=== PATIENT | male | born 1950 | race Caucasian/White ===

== ENCOUNTER 2019-05-27 09:06 | Day surgery (SDC) | payer OTHER ==
[~2019-05-27] VITALS: Ht 175.3 cm; Wt 91.3 kg
[~2019-05-27 09:06] MED LIST: ASCO500 PO; ASPI81CH PO; ATOR10 PO; Bactrim 400-801 EACH PO; CEPH500 PO; HYDACE5 PO; METF500 PO; QUIN10 PO; SILD50TA PO; SULI150 PO; THERA1 EACH PO
--- NOTE | 2019-05-27 09:25 | NUR ---
History, Chart, Medications and Allergies reviewed before start of procedure. Patient confirms NPO status and agrees with scheduled surgery. Patient States Post-Procedure ride home has been arranged with his .
--- NOTE | 2019-05-27 13:18 | NUR ---
ARRIVAL TO STEPDOWN. REPORT RECEIVED FROM Yonatan OLMSTEAD. VSS ON RA. PAIN LEVEL 2/10. TOLERATING PO JUICE AND CRACKERS. PROPHALACTIC PAIN PILL GIVEN. D/C INSTRUCTIONS GIVEN TO PT AND . VERBALIZE UNDERSTANDING.
--- NOTE | 2019-05-27 13:56 | NUR ---
DOES NOT FEEL LIKE HE HAS TO URINATE. INSTRUCTED TO DRINK FLUIDS AND CALL DOCTOR IF UNABLE TO VOID BY THIS EVENING.
== END 2019-05-27 23:01 | disposition home or self-care (01) ==
LOC: ORSCMMR 09:06 → ORD 10:30 → ORSCMMR 10:30
PROVIDERS: Surgery
PROC: 0YU60JZ Supplement Left Inguinal Region with Synthetic Substitute, Open Approach (ICD-10-PCS; principal; 2019-05-27 10:30)
DX: K40.90 Unilateral inguinal hernia, without obstruction or gangrene, not specified as recurrent (principal); I10 Essential (primary) hypertension; E78.00 Pure hypercholesterolemia, unspecified; Z87.891 Personal history of nicotine dependence; Z79.899 Other long term (current) drug therapy
CPT/HCPCS: 82947; A9270-GY; C1781; J0690; J1100; J1885; J2250; J2405; J2704; J3010; J7120

== ENCOUNTER 2021-02-03 08:19 | Day surgery (SDC) | payer OTHER ==
[~2021-02-03] VITALS: Ht 177.8 cm; Wt 97.8 kg
[~2021-02-03 08:19] MED LIST changes: +Flonase 0.05% N16 GM; +LORA10ER PO; +OMEGA-3 + VITA1 EAC2 PO
--- NOTE | 2021-02-03 12:24 | NUR ---
02/03/21 1224 Danya Sinclair LATE ENTRY: PT WITH BILIOUS EMESIS DURING PROCEDURE, ORAL SUCTIONING DONE TIMES 3. IV ZOFRAN 4MG GIVEN ORDERED BY MD PARSONS. PT INFORMED OF HIS EMESIS AFTER HE AWAKENED, C/O "A BIT OF A SORE THROAT." PT INFORMED TO TRY TO DRINK WARM FLUIDS.
== END 2021-02-03 10:13 | disposition home or self-care (01) ==
LOC: ORSCSDS 08:19
PROVIDERS: Surgery
PROC: 0DJD8ZZ Inspection of Lower Intestinal Tract, Via Natural or Artificial Opening Endoscopic (ICD-10-PCS; principal; 2021-02-03 09:30)
DX: Z12.11 Encounter for screening for malignant neoplasm of colon (principal); Z80.0 Family history of malignant neoplasm of digestive organs; K57.30 Diverticulosis of large intestine without perforation or abscess without bleeding; E78.5 Hyperlipidemia, unspecified; I10 Essential (primary) hypertension; E11.9 Type 2 diabetes mellitus without complications; Z79.84 Long term (current) use of oral hypoglycemic drugs; Z79.899 Other long term (current) drug therapy
CPT/HCPCS: 82947; J2405; J2704; J7120

== ENCOUNTER 2023-02-27 14:17 | Day surgery (SDC) | payer OTHER ==
[~2023-02-27] VITALS: Ht 177.8 cm; Wt 86.8 kg
[2023-02-27 16:08] VITALS: BP 164/94
--- NOTE | 2023-02-27 16:15 | NUR ---
02/27/23 1615 EBEN GODFREY IV REMOVED, WNL, CADY WELL. CANNULA INTACT
== END 2023-02-27 16:25 | disposition home or self-care (01) ==
LOC: ORSCSDS 14:17
PROVIDERS: Ophthalmology
PROC: 08RJ3JZ Replacement of Right Lens with Synthetic Substitute, Percutaneous Approach (ICD-10-PCS; principal; 2023-02-27 15:30)
DX: E11.36 Type 2 diabetes mellitus with diabetic cataract (principal); H25.13 Age-related nuclear cataract, bilateral; H52.201 Unspecified astigmatism, right eye; E78.5 Hyperlipidemia, unspecified; I10 Essential (primary) hypertension; Z79.84 Long term (current) use of oral hypoglycemic drugs; Z79.899 Other long term (current) drug therapy; Z79.82 Long term (current) use of aspirin
CPT/HCPCS: 82947; J2250; J3010; J3301; J7040; V2632